=== PATIENT | male | born 1940 | race Caucasian/White ===

== ENCOUNTER 2017-06-10 17:28 | Inpatient (IN) | payer OTHER, MEDICARE ==
[~2017-06-10] VITALS: Ht 170.2 cm; Wt 87.6 kg
[~2017-06-10 17:28] MED LIST: AMARYL1 MG PO; AMLODIPINE BESY10 MG PO; JANUVIA100 MG PO; LIPITOR40 MG PO; LISINOPRIL20 MG PO; METFORMIN HCL1000 MG PO; MICROZIDE12.5 M1 PO
[2017-06-10 22:39] LABS: BASOPHIL (%) 0.6 % (0-1); BASOPHIL COUNT 0.1 K/uL (0-0.1); EOSINOPHIL (%) 0.7 % (0-5); EOSINOPHIL COUNT 0.1 K/uL (0-0.3); HEMATOCRIT 46.6 % (38.0-50.0); HEMOGLOBIN 15.3 G/DL (12.5-16.6); IMMATURE GRANULOCYTE (%) 0.5 % (0.0-0.7); LYMPHOCYTE (%) 12.9 % (15-42); LYMPHOCYTE COUNT 1.5 K/uL (1.0-2.8); MCH 27.7 PG (29.0-34.0); MCHC 32.8 G/DL (30.0-36.0); MCV 84.3 FL (86-99); MONOCYTE (%) 7.6 % (3-12); MONOCYTE COUNT 0.9 K/uL (0-0.8); NEUTROPHIL (%) 77.7 % (45-76); NEUTROPHIL COUNT 9.2 K/uL (1.8-6.4); PLATELET COUNT 286 K/uL (156-360); RBC DIS.WIDTH-CV 13.2 % (11.8-14.6); RBC DIS.WIDTH-SD 41.1 % (39-53); RED BLOOD COUNT 5.53 M/uL (4.00-5.50); WHITE BLOOD COUNT 11.8 K/uL (4.1-10.2)
[2017-06-10 22:50] LABS: ALBUMIN 4.2 g/dL (3.2-4.8); CHLORIDE 102 mEq/L (99-109); POTASSIUM 3.9 mEq/L (3.7-5.4); SODIUM 137 mEq/L (136-147)
[2017-06-10 22:53] LABS: GLUCOSE 123 mg/dL (70-99); TOTAL PROTEIN 7.7 g/dL (6.4-8.3)
[2017-06-10 22:55] LABS: TOTAL BILIRUBIN 0.9 mg/dL (0.0-1.0)
[2017-06-10 22:56] LABS: ALKALINE PHOSPHATASE 93 IU/L (3-129); GFR ESTIMATE (CALCULATED) > 59 mL/min/ (58.99-99999)
[2017-06-10 22:57] LABS: UREA NITROGEN (BUN) 15 mg/dL (9-23)
[2017-06-10 22:58] LABS: AST (GOT) 13 IU/L (2-34)
[2017-06-10 22:59] LABS: ALT (GPT) 12 IU/L (3-49)
[2017-06-10] MEDS ORDERED: METOPROLOL SUC100 MG PO (23:28)
[2017-06-11 01:39] LABS: ERTH.SED.RATE 59 MM/HR (0-20)
[2017-06-11 02:12] LABS: C-REACTIVE PROTEIN 28.2 MG/L (0-10)
[2017-06-11 17:10] VITALS: BP 162/70
[2017-06-11 20:47] VITALS: BP 149/63
[2017-06-12 00:15] VITALS: BP 131/59
[2017-06-12 07:29] LABS: HEMATOCRIT 39.8 % (38.0-50.0); MCH 28.1 PG (29.0-34.0); MCHC 32.9 G/DL (30.0-36.0); MCV 85.4 FL (86-99); PLATELET COUNT 259 K/uL (156-360); RBC DIS.WIDTH-CV 13.3 % (11.8-14.6); RBC DIS.WIDTH-SD 41.3 % (39-53); RED BLOOD COUNT 4.66 M/uL (4.00-5.50); WHITE BLOOD COUNT 8.4 K/uL (4.1-10.2)
[2017-06-12 07:30] LABS: HEMOGLOBIN 13.1 G/DL (12.5-16.6)
[2017-06-12 07:48] LABS: INTER. NORMALIZED RATIO 1.1
[2017-06-12 07:50] LABS: PTT 33.7 SEC (25-37)
[2017-06-12 07:56] LABS: CHLORIDE 103 MEQ/L (99-109); CREATININE 1.1 MG/DL (0.6-1.3); GFR ESTIMATE (CALCULATED) > 59 mL/min/ (58.99-99999); GLUCOSE 138 mg/dL (70-99); POTASSIUM 3.8 MEQ/L (3.7-5.4); SODIUM 138 MEQ/L (136-147); UREA NITROGEN (BUN) 15 mg/dL (9-23)
[2017-06-12 08:03] VITALS: BP 145/65
[2017-06-12 11:24] VITALS: BP 128/56
[2017-06-12] MEDS ORDERED: HYDROCODON-ACE1 EAC9 PO (14:58)
[2017-06-12] MEDS ORDERED: ASPIR-LOW81 MG PO (14:58)
[2017-06-12] MEDS ORDERED: CILOSTAZOL100 MG PO (14:58)
[2017-06-12] MEDS ORDERED: NOVOLOG 10100 UNITS/ SC (14:59)
[2017-06-12] MEDS ORDERED: ZOSYN 3.3753.375 GM IV (15:00)
[2017-06-12] MEDS ORDERED: Toradol IV (15:00)
[2017-06-12] MEDS ORDERED: HEPARIN SO5000 UNIT4 SC (15:01)
[2017-06-12 15:33] VITALS: BP 102/52
== END 2017-06-12 19:21 | disposition short-term general hospital (02) | DRG 300 ==
LOC: EME 17:28 → EDOF 23:38 → ENRESERV 23:39 → 5SOUTH 06-11 15:24
PROVIDERS: Internal Medicine; Physician Assistant
DX: E11.52 Type 2 diabetes mellitus with diabetic peripheral angiopathy with gangrene (principal); L03.115 Cellulitis of right lower limb; I70.202 Unspecified atherosclerosis of native arteries of extremities, left leg; L03.116 Cellulitis of left lower limb; L03.031 Cellulitis of right toe; E11.621 Type 2 diabetes mellitus with foot ulcer; E78.5 Hyperlipidemia, unspecified; I10 Essential (primary) hypertension; Z68.30 Body mass index [BMI] 30.0-30.9, adult; E66.9 Obesity, unspecified; I70.8 Atherosclerosis of other arteries; L97.429 Non-pressure chronic ulcer of left heel and midfoot with unspecified severity; L97.509 Non-pressure chronic ulcer of other part of unspecified foot with unspecified severity; E11.628 Type 2 diabetes mellitus with other skin complications; Z95.1 Presence of aortocoronary bypass graft; Z79.84 Long term (current) use of oral hypoglycemic drugs; Z87.891 Personal history of nicotine dependence; Z86.73 Personal history of transient ischemic attack (TIA), and cerebral infarction without residual deficits; Z82.49 Family history of ischemic heart disease and other diseases of the circulatory system; I74.5 Embolism and thrombosis of iliac artery; I25.10 Atherosclerotic heart disease of native coronary artery without angina pectoris
CPT/HCPCS: 36415; 73630; 75635; 80048; 80053; 82948; 83605; 85025; 85027; 85610; 85651; 85730; 86140; 87040; 87070; 87075; 87076; 87077; 87185; 87186; 87205; 99281; 99285; J1644; J1815; J1885; J2543; J3010; J7030; J7050

== ENCOUNTER → 2017-08-30 | Outpatient (CLI) | payer MEDICARE ==
[~2017-08-30] MED LIST changes: +ASPIR-LOW81 MG PO; +CILOSTAZOL100 MG PO; +HEPARIN SO5000 UNIT4 SC; +HYDROCODON-ACE1 EAC9 PO; +METOPROLOL SUC100 MG PO; +NOVOLOG 10100 UNITS/ SC; +Toradol IV; +ZOSYN 3.3753.375 GM IV
== END | disposition home or self-care (01) ==
LOC: CDC 10:54
DX: Z01.810 Encounter for preprocedural cardiovascular examination (principal)
CPT/HCPCS: 93000